=== PATIENT | female | born 1950 | race Caucasian/White ===

== ENCOUNTER → 2019-09-03 11:48 | Outpatient (CLI) | payer OTHER, SELFPAY ==
--- NOTE | 2019-09-03 | DI.RAD.S_ITS ---
PROCEDURE: XR FOOT LT MIN 3V INDICATIONS: Left Foot Pain TECHNIQUE: 3 views of the foot were acquired. COMPARISON: None. FINDINGS: Bones: No fractures or dislocations. No suspicious bony lesions. Mild first MTP joint degeneration. Diffuse interphalangeal spurring and sclerosis. Heterotopic ossification of the posterior calcaneus, suggesting chronic Achilles tendinopathy. Soft tissues: No tibiotalar joint effusion. Achilles tendon appears normal. IMPRESSION: No fracture Chronic degenerative changes as above Dictated by: Woo Montoya M.D. on 09/03/2019 at 13:15 Approved by: Woo Montoya M.D. on 09/03/2019 at 13:17
--- NOTE | 2019-09-03 | DI.RAD.S_ITS ---
PROCEDURE: XR ANKLE LT 2V INDICATIONS: Left Foot Pain TECHNIQUE: 3 views of the ankle were acquired. COMPARISON: None. FINDINGS: Bones: No fractures or dislocations. Ankle mortise is normally aligned. No suspicious bony lesions. Posterior calcaneal heterotopic ossification. Tibiotalar spurring Soft tissues: No tibiotalar joint effusion. Achilles tendon appears normal. IMPRESSION: Degenerative changes as above No fracture Dictated by: Woo Montoya M.D. on 09/03/2019 at 13:13 Approved by: Woo Montoya M.D. on 09/03/2019 at 13:15
[2019-09-03 12:15] LABS: Bacteria Urine None Seen; RBC Urine None Seen (0-5/HPF); WBC Urine None Seen (0-5/HPF)
[2019-09-03 12:47] LABS: Add Manual Diff / Slide Review NO; Basophils Absolute Auto 100 /uL (0-100); Eosinophils Absolute Auto 100 /uL (0-450); Eosinophils Percent Auto 2.1 % (2-4); Hematocrit 41.1 % (36-46); Hemoglobin 14.1 g/dL (12.0-16.0); Lymphocytes Absolute Auto 1800 /uL (1100-4500); Lymphocytes Percent Auto 28.8 % (25-40); Mean Corpuscular HGB Conc 34.3 % (30-36); Mean Corpuscular Hemoglobin 31.9 PG (26-34); Mean Corpuscular Volume 92.9 fL (80-100); Monocytes Absolute Auto 500 /uL (0-900); Monocytes Percent Auto 7.9 % (3-14); Neutrophils Absolute Auto 3700 /uL (1500-7000); Neutrophils Percent Auto 60.2 % (50-75); Platelet Count 217 X10^3/uL (150-400); Red Blood Cell Count 4.42 X10^6/uL (4.0-5.2); Red Cell Distribution Width 12.7 % (11.6-14.8); White Blood Cell Count 6.2 X10^3/uL (4.5-11.0)
[2019-09-03 13:19] LABS: Alanine Aminotransferase 21 IU/L (<35); Albumin 4.4 g/dL (3.5-5.0); Albumin Globulin Ratio 1.3 (1.0-2.8); Alkaline Phosphatase 72 U/L (38-126); Aspartate Aminotransferase 33 IU/L (14-36); BUN Creatinine Ratio 22.5 (6-22); Bilirubin Total 0.4 mg/dL (0.2-1.3); Blood Urea Nitrogen 16 mg/dL (7-17); Calcium 9.3 mg/dL (8.4-10.2); Carbon Dioxide 28 mmol/L (22-32); Chloride 105 mmol/L (98-107); Cholesterol 184 mg/dL (140-199); Estimated Glomerular Filt Rate > 60.0 mL/min (>60); Globulin 3.4 g/dL (1.7-4.1); Glucose 92 mg/dL (80-110); HDL Cholesterol 58 mg/dL (40-60); HEMOLYSIS < 15 (0-50); LDL Cholesterol Calculated 106 mg/dL (<100); Potassium 4.1 mmol/L (3.4-5.1); Sodium 140 mmol/L (137-145); Total Protein 7.8 g/dL (6.3-8.2); Triglycerides 99 mg/dL (35-150)
[2019-09-03 14:09] LABS: Vitamin B12 448 pg/mL (239-931)
[2019-09-03 15:01] LABS: Appearance Urine UA CLEAR; Bilirubin Urine UA NEGATIVE (NEGATIVE); Color Urine UA YELLOW; Glucose Urine UA NEGATIVE (Negative); Ketones Urine UA TRACE (NEGATIVE); Leukocyte Esterase Urine UA NEGATIVE (NEGATIVE); Nitrite Urine UA NEGATIVE (Negative); Occult Blood Urine UA NEGATIVE (Negative); Protein Urine UA NEGATIVE (Negative); Specific Gravity Urine UA 1.025 (1.000-1.035); Urobilinogen Urine UA 0.2 E.U./dL (0.2)
[2019-09-03 15:41] LABS: Culture Indicated Urine Cult Not Indicated; Mucus Urine 2+ (Negative); Squamous Epithelial Cell Urine 1-5 /HPF (0-5/HPF)
[2019-09-03 15:55] LABS: Vitamin D 25 Hydroxy (D3) 42.6 ng/mL (30.0-100.0)
== END ==
PROVIDERS: PCP Internal Medicine; Referring Provider Internal Medicine; Visit Provider Internal Medicine
DX: M79.672 Pain in left foot (principal); M19.072 Primary osteoarthritis, left ankle and foot; E03.9 Hypothyroidism, unspecified; E55.9 Vitamin D deficiency, unspecified
CPT/HCPCS: 36415; 73600; 73630; 80053; 80061; 81001; 82306; 82607; 84439; 84443; 85025

== ENCOUNTER → 2019-10-09 12:36 | Outpatient (CLI) | payer OTHER, SELFPAY | PROVIDERS: PCP Internal Medicine; Referring Provider Internal Medicine; Visit Provider Internal Medicine | DX: Z13.820 Encounter for screening for osteoporosis (principal); M81.0 Age-related osteoporosis without current pathological fracture; Z78.0 Asymptomatic menopausal state | CPT/HCPCS: 77080 ==

== ENCOUNTER → 2020-07-08 09:11 | Outpatient (CLI) | payer MEDICARE, SELFPAY ==
[2020-07-08] MEDS: COVID-19 VACC, Ad26(JANSSEN)/PF 0.5 ML IM (09:18)
== END ==
PROVIDERS: PCP Internal Medicine; Visit Provider Internal Medicine
DX: Z23 Encounter for immunization (principal)
CPT/HCPCS: 0031A; 91303

== ENCOUNTER → 2020-11-22 07:15 | Outpatient (CLI) | payer OTHER, SELFPAY ==
[2020-11-22 08:08] LABS: Add Manual Diff / Slide Review NO; Basophils Absolute Auto 100 /uL (0-100); Basophils Percent Auto 1.4 % (0-2); Eosinophils Absolute Auto 100 /uL (0-450); Eosinophils Percent Auto 2.1 % (2-4); Hematocrit 42.7 % (36-46); Hemoglobin 13.9 g/dL (12.0-16.0); Lymphocytes Absolute Auto 2200 /uL (1100-4500); Lymphocytes Percent Auto 39.1 % (25-40); Mean Corpuscular HGB Conc 32.5 % (30-36); Mean Corpuscular Hemoglobin 30.4 PG (26-34); Mean Corpuscular Volume 93.5 fL (80-100); Monocytes Absolute Auto 500 /uL (0-900); Monocytes Percent Auto 9.5 % (3-14); Neutrophils Absolute Auto 2700 /uL (1500-7000); Neutrophils Percent Auto 47.9 % (50-75); Platelet Count 216 X10^3/uL (150-400); Red Blood Cell Count 4.57 X10^6/uL (4.0-5.2); Red Cell Distribution Width 12.8 % (11.6-14.8); White Blood Cell Count 5.7 X10^3/uL (4.5-11.0)
[2020-11-22 08:29] LABS: Alanine Aminotransferase 30 IU/L (<35); Albumin 3.9 g/dL (3.5-5.0); Albumin Globulin Ratio 1.2 (1.0-2.8); Alkaline Phosphatase 71 U/L (38-126); Aspartate Aminotransferase 39 IU/L (14-36); BUN Creatinine Ratio 19.4 (6-22); Bilirubin Total 0.5 mg/dL (0.2-1.3); Blood Urea Nitrogen 14 mg/dL (7-17); Calcium 9.5 mg/dL (8.4-10.2); Carbon Dioxide 29 mmol/L (22-32); Chloride 107 mmol/L (98-107); Cholesterol 172 mg/dL (140-199); Estimated Glomerular Filt Rate > 60.0 mL/min (>60); Globulin 3.2 g/dL (1.7-4.1); Glucose 91 mg/dL (80-110); HDL Cholesterol 67 mg/dL (40-60); HEMOLYSIS < 15 (0-50); LDL Cholesterol Calculated 91 mg/dL (<100); Potassium 4.5 mmol/L (3.4-5.1); Sodium 141 mmol/L (137-145); Total Protein 7.1 g/dL (6.3-8.2); Triglycerides 70 mg/dL (35-150)
[2020-11-22 09:00] LABS: TSH w/ Reflex to FT4 0.03 uIU/mL (0.47-4.68)
[2020-11-22 10:36] LABS: Free T4, Direct Thyroxine 1.35 ng/dL (0.78-2.19)
== END ==
PROVIDERS: PCP Family Medicine; Referring Provider Family Medicine; Visit Provider Family Medicine
DX: E03.9 Hypothyroidism, unspecified (principal); E78.5 Hyperlipidemia, unspecified
CPT/HCPCS: 36415; 80053; 80061; 84439; 84443; 85025

== ENCOUNTER → 2021-01-12 07:04 | Outpatient (CLI) | payer OTHER, SELFPAY ==
[2021-01-12 09:18] LABS: Free T4, Direct Thyroxine 1.01 ng/dL (0.78-2.19)
[2021-01-12 09:32] LABS: TSH w/ Reflex to FT4 2.63 uIU/mL (0.47-4.68)
== END ==
PROVIDERS: PCP Family Medicine; Referring Provider Family Medicine; Visit Provider Family Medicine
DX: E03.9 Hypothyroidism, unspecified (principal)
CPT/HCPCS: 36415; 84439; 84443

== ENCOUNTER → 2021-01-17 08:20 | Outpatient (CLI) | payer OTHER, SELFPAY ==
[2021-01-17 12:42] LABS: COVID19 -Nasal RAPID Negative (Negative)
== END ==
PROVIDERS: PCP Family Medicine; Visit Provider Nurse Practitioner Family
DX: Z20.822 Contact with and (suspected) exposure to COVID-19 (principal); J02.9 Acute pharyngitis, unspecified; R05 Cough; R53.83 Other fatigue
CPT/HCPCS: 87635

== ENCOUNTER → 2021-08-25 13:36 | Outpatient (CLI) | payer OTHER, SELFPAY ==
[2021-08-25 14:22] LABS: Influenza A - CEPHEID Flu A NEGATIVE (NEGATIVE); Influenza B - CEPHEID Flu B NEGATIVE (NEGATIVE)
[2021-08-25 14:26] LABS: COVID-19 CEPHEID PCR (VTM/NP) Negative (Negative)
== END ==
PROVIDERS: PCP Family Medicine; Visit Provider Nurse Practitioner Family
DX: R05.9 Cough, unspecified (principal); Z20.822 Contact with and (suspected) exposure to COVID-19
CPT/HCPCS: 0240U

== ENCOUNTER → 2022-05-25 15:51 | Outpatient (CLI) | payer OTHER, MEDICARE, SELFPAY ==
[2022-05-25 16:38] LABS: Add Manual Diff / Slide Review NO; Basophils Absolute Auto 100 /uL (0-100); Eosinophils Absolute Auto 100 /uL (0-450); Eosinophils Percent Auto 0.8 % (2-4); Hematocrit 41.3 % (36-46); Hemoglobin 13.8 g/dL (12.0-16.0); Lymphocytes Absolute Auto 2100 /uL (1100-4500); Mean Corpuscular HGB Conc 33.3 % (30-36); Mean Corpuscular Hemoglobin 31.3 PG (26-34); Mean Corpuscular Volume 93.8 fL (80-100); Monocytes Absolute Auto 400 /uL (0-900); Monocytes Percent Auto 6.2 % (3-14); Neutrophils Absolute Auto 4000 /uL (1500-7000); Platelet Count 202 X10^3/uL (150-400); Red Cell Distribution Width 12.9 % (11.6-14.8); White Blood Cell Count 6.7 X10^3/uL (4.5-11.0)
[2022-05-25 16:59] LABS: Alanine Aminotransferase 26 IU/L (<35); Albumin 4.3 g/dL (3.5-5.0); Albumin Globulin Ratio 1.2 (1.0-2.8); Alkaline Phosphatase 83 U/L (38-126); Aspartate Aminotransferase 32 IU/L (14-36); BUN Creatinine Ratio 30.2 (6-22); Bilirubin Total 0.3 mg/dL (0.2-1.3); Blood Urea Nitrogen 19 mg/dL (7-17); Calcium 9.1 mg/dL (8.4-10.2); Carbon Dioxide 27 mmol/L (22-32); Chloride 103 mmol/L (98-107); Cholesterol 200 mg/dL (140-199); Estimated Glomerular Filt Rate > 60 mL/min (>60); Globulin 3.6 g/dL (1.7-4.1); Glucose 116 mg/dL (80-110); HDL Cholesterol 82 mg/dL (40-60); HEMOLYSIS < 15 (0-50); LDL Cholesterol Calculated 102 mg/dL (<100); Potassium 3.8 mmol/L (3.4-5.1); Sodium 139 mmol/L (137-145); Total Protein 7.9 g/dL (6.3-8.2); Triglycerides 81 mg/dL (35-150)
[2022-05-25 17:16] LABS: Free T4, Direct Thyroxine 1.13 ng/dL (0.78-2.19)
[2022-05-25 17:30] LABS: TSH w/ Reflex to FT4 5.08 uIU/mL (0.47-4.68)
== END ==
PROVIDERS: PCP Family Medicine; Referring Provider Family Medicine; Visit Provider Family Medicine
DX: E03.9 Hypothyroidism, unspecified (principal); E78.2 Mixed hyperlipidemia
CPT/HCPCS: 36415; 80053; 80061; 84439; 84443; 85025

== ENCOUNTER 2022-12-27 08:15 | Outpatient (RCR) | payer OTHER, MEDICARE, SELFPAY ==
--- NOTE | 2022-08-30 13:02 | PT.OIE ---
Current Diagnoses Pain in left shoulder (08/30/22) Strain of muscle(s) and tendon(s) of the rotator cuff of left shoulder, initial encounter (08/30/22) Past Medical History (Last Updated 08/26/20 @ 10:32 by Eugene Wagner MD) Hyperlipidemia Hypothyroidism Visit Care Team Role Provider Type Eugene Wagner MD Attending Provider Physician Family Provider Primary Care Provider Referring Provider Specialty: Family Practice Address: [address] [place] [address], [facility] Email: [email or web address] Physical Therapy Initial Evaluation PT-OP-A Visit Information Start: 08/29/22 15:17 Freq: Status: Active Protocol: Document 08/30/22 10:03 AMB (Rec: 08/30/22 10:53 AMB [id number]) Out-Patient Physical Therapy Visit Information Visit Information Visit Type Initial Evaluation Visit Start Time 10:00 Visit Stop Time 10:45 Total Visit Minutes 45 Visit Number 1 PT-OP-B Current Condition Start: 08/29/22 15:17 Freq: Status: Active Protocol: Document 08/30/22 10:03 AMB (Rec: 08/30/22 10:53 AMB [id number]) Current Condition History of Current Condition Onset Date January 2022 Current Complaints L shoulder pain History of Current Condition Pain after covid shot, likes to swim. Back in May pain increased. Has to use flippers for swimming now. Pain with movement especially overhead. Biking, piano, yoga all increase the pain. Treatment Goals Patient/Caregiver Goals Be able to swim, do yoga without shoulder pain Personal Factors Other Personal Factors That May Effect Hx B QUIQUE 2012, osteopenia, Therapy/Recovery hypothyroid, neck pain PT-OP-C Subjective Start: 08/29/22 15:17 Freq: Status: Active Protocol: Document 08/30/22 12:34 AMB (Rec: 08/30/22 12:36 AMB [id number]) OP-PT Subjective Patient Comments Patient Comments 4/10 pain in ant shoulder and scapula Patient Questionnaires Quick Dash- Upper Extremity Quick Dash UE Score 41 Quick Dash UE Impairment 40 to 59% Impaired (Score 40- 59) PT-OP-K Range of Motion Start: 08/29/22 15:17 Freq: Status: Active Protocol: Document 08/30/22 10:03 AMB (Rec: 08/30/22 10:53 AMB [id number]) Shoulder Goniometric Range of Motion Shoulder L Testing Position Sitting Flexion 145 Abduction 170 External Rotation at 90 degrees 32 Abduction Comments 75 R Shoulder ROM WFL Yes PT-OP-L Special Tests Start: 08/29/22 15:17 Freq: Status: Active Protocol: Document 08/30/22 10:03 AMB (Rec: 08/30/22 10:53 AMB [id number]) Special Tests Shoulder Special Tests Lift-Off Rotator Cuff Test Results + Neer Impingement Test Results - Amato Clay Impingement Test Results + PT-OP-M Strength Start: 08/29/22 15:17 Freq: Status: Active Protocol: Document 08/30/22 10:03 AMB (Rec: 08/30/22 10:53 AMB [id number]) Shoulder Strength Shoulder Manual Muscle Testing Left Flexion 4 Good Extension 4+ Good+ Abduction (C5) 4 Good External Rotation 3 Fair Internal Rotation 4- Good- PT-OP-Q Treatments Start: 08/29/22 15:17 Freq: Status: Active Protocol: Document 08/30/22 10:00 AMB (Rec: 08/30/22 12:24 AMB [id number]) Therapeutic Exercises Standing Exercises ER isometric Side left Reps/Minutes 5x5 t band rows Resistance green latex free Reps/Minutes 2x10 Other Exercises jey pose Reps/Minutes 30x2 Comments with side bend for more L stretch PT-OP-T Assessment and Plan Start: 08/29/22 15:17 Freq: Status: Active Protocol: Document 08/30/22 10:00 AMB (Rec: 08/30/22 13:02 AMB [id number]) Physical Therapy Assessment Rehab Potential Rehabilitation Potential Good Evaluation Complexity Number of Personal Factors/Comorbidities 1-2 Number of Body Systems Impaired 4 or More Clinical Presentation at Evaluation Stable Impairments Impairments Activity Tolerance,Functional Activities,Pain,ROM,Strength Goals Three Impairment Pain Short Term Goal (STG) Cait will swim without her flippers without increasing her shoulder pain. STG Duration 5 weeks Medical Technologist Prn Goal (LTG) Cait will perform her yoga without needing to modify for her shoulder pain. LTG Duration 10 weeks Two Impairment Strength Short Term Goal (STG) Cait will be independent with a HEP to improve her ROM and strengthening. STG Duration 5 weeks One Impairment ROM Short Term Goal (STG) Cait will improve her L shoulder active flexion to 160 degrees. STG Duration 5 Medical Technologist Prn Goal (LTG) Cait will improve her L shoulder external rotation to at least 50 degrees. LTG Duration 10 Assessment Summary Assessment Cait attends physical therapy with shoulder pain s/p vaccination in January that likely began an inflammatory reaction so now both her glenohumeral and scapulothoracic joints are stiff. She did show some signs of impingment and supraspinatus weakness as well . She will benefit from physical therapy to improve her ROM, strength and reduce her pain so that she can return to her active lifestyle with less shoulder pain. Physical Therapy Plan Frequency and Duration Frequency of Treatment 1x/Week Duration of treatment (weeks) 10 Plan of Care Start Date 08/30/22 Plan of Care End Date 11/08/22 Therapeutic Interventions Therapeutic Interventions Home Exercise Program,Joint Mobilizations,Manual Therapy, Neuromuscular Re-education, Self-Care/Home Management, Therapeutic Activities, Therapeutic Exercises Modalities Cold Pack/Ice Massage,Electric Stimulation,Hot Packs Next Visit Focus/Plan Next Note Type Treatment Note Next Visit Plan review HEP: t band rows, isometric ER,
--- NOTE | 2022-08-30 13:04 | PT.OPPOC ---
Physical, Occupational & Speech Therapy At [facility] Current Diagnoses Pain in left shoulder (08/30/22) Strain of muscle(s) and tendon(s) of the rotator cuff of left shoulder, initial encounter (08/30/22) Visit Care Team Role Provider Type Eugene Wagner MD Attending Provider Physician Family Provider Primary Care Provider Referring Provider Specialty: Family Practice Address: [address] [place] [address], [facility] Email: [email or web address] Plan Of Care PT-OP-T Assessment and Plan Start: 08/29/22 15:17 Freq: Status: Active Protocol: Document 08/30/22 10:00 AMB (Rec: 08/30/22 13:02 AMB [id number]) Physical Therapy Assessment Rehab Potential Rehabilitation Potential Good Evaluation Complexity Number of Personal Factors/Comorbidities 1-2 Number of Body Systems Impaired 4 or More Clinical Presentation at Evaluation Stable Impairments Impairments Activity Tolerance,Functional Activities,Pain,ROM,Strength Goals Three Impairment Pain Short Term Goal (STG) Cait will swim without her flippers without increasing her shoulder pain. STG Duration 5 weeks Spring Floor Service Worker Goal (LTG) Cait will perform her yoga without needing to modify for her shoulder pain. LTG Duration 10 weeks Two Impairment Strength Short Term Goal (STG) Cait will be independent with a HEP to improve her ROM and strengthening. STG Duration 5 weeks One Impairment ROM Short Term Goal (STG) Cait will improve her L shoulder active flexion to 160 degrees. STG Duration 5 Spring Floor Service Worker Goal (LTG) Cait will improve her L shoulder external rotation to at least 50 degrees. LTG Duration 10 Assessment Summary Assessment Cait attends physical therapy with shoulder pain s/p vaccination in January that likely began an inflammatory reaction so now both her glenohumeral and scapulothoracic joints are stiff. She did show some signs of impingment and supraspinatus weakness as well . She will benefit from physical therapy to improve her ROM, strength and reduce her pain so that she can return to her active lifestyle with less shoulder pain. Physical Therapy Plan Frequency and Duration Frequency of Treatment 1x/Week Duration of treatment (weeks) 10 Plan of Care Start Date 08/30/22 Plan of Care End Date 11/08/22 Therapeutic Interventions Therapeutic Interventions Home Exercise Program,Joint Mobilizations,Manual Therapy, Neuromuscular Re-education, Self-Care/Home Management, Therapeutic Activities, Therapeutic Exercises Modalities Cold Pack/Ice Massage,Electric Stimulation,Hot Packs Next Visit Focus/Plan Next Note Type Treatment Note Next Visit Plan review HEP: t band rows, isometric ER, Plan of Care Dates Plan of Care Start Date 08/30/22 Plan of Care End Date 11/08/22 Electronically Signed by: Liliaan Salgado, PT 08/30/22 0896 If you are in agreement with this Plan of Care, please return a signed and dated copy. I have reviewed this Plan of Care and certify that the skilled therapy services above are required to meet the patient?s needs. Physician Signature Date Printed Name and Credentials Clinical Instructor Signature Printed Name and Credentials
--- NOTE | 2022-09-05 16:23 | PT.OTN ---
Current Diagnoses Pain in left shoulder (09/05/22) Strain of muscle(s) and tendon(s) of the rotator cuff of left shoulder, initial encounter (09/05/22) Physical Therapy Treatment Note PT-OP-A Visit Information Start: 08/29/22 15:17 Freq: Status: Active Protocol: Document 09/05/22 13:34 AMB (Rec: 09/05/22 14:19 AMB [id number]) Out-Patient Physical Therapy Visit Information Visit Information Visit Type Treatment Note Visit Start Time 13:30 Visit Stop Time 14:15 Total Visit Minutes 45 Visit Number 2 PT-OP-B Current Condition Start: 08/29/22 15:17 Freq: Status: Active Protocol: Document 08/30/22 10:03 AMB (Rec: 08/30/22 10:53 AMB [id number]) Current Condition History of Current Condition Onset Date January 2022 Current Complaints L shoulder pain History of Current Condition Pain after covid shot, likes to swim. Back in May pain increased. Has to use flippers for swimming now. Pain with movement especially overhead. Biking, piano, yoga all increase the pain. Treatment Goals Patient/Caregiver Goals Be able to swim, do yoga without shoulder pain Personal Factors Other Personal Factors That May Effect Hx B QUIQUE 2012, osteopenia, Therapy/Recovery hypothyroid, neck pain PT-OP-C Subjective Start: 08/29/22 15:17 Freq: Status: Active Protocol: Document 09/05/22 16:20 AMB (Rec: 09/05/22 16:22 AMB [id number]) OP-PT Subjective Patient Comments Patient Comments Pt reports increased pain after last eval, back down to baseline now, has been icing. PT-OP-K Range of Motion Start: 08/29/22 15:17 Freq: Status: Active Protocol: Document 08/30/22 10:03 AMB (Rec: 08/30/22 10:53 AMB [id number]) Shoulder Goniometric Range of Motion Shoulder L Testing Position Sitting Flexion 145 Abduction 170 External Rotation at 90 degrees 32 Abduction Comments 75 R Shoulder ROM WFL Yes PT-OP-L Special Tests Start: 08/29/22 15:17 Freq: Status: Active Protocol: Document 08/30/22 10:03 AMB (Rec: 08/30/22 10:53 AMB [id number]) Special Tests Shoulder Special Tests Lift-Off Rotator Cuff Test Results + Neer Impingement Test Results - Amato Clay Impingement Test Results + PT-OP-M Strength Start: 08/29/22 15:17 Freq: Status: Active Protocol: Document 08/30/22 10:03 AMB (Rec: 08/30/22 10:53 AMB [id number]) Shoulder Strength Shoulder Manual Muscle Testing Left Flexion 4 Good Extension 4+ Good+ Abduction (C5) 4 Good External Rotation 3 Fair Internal Rotation 4- Good- PT-OP-Q Treatments Start: 08/29/22 15:17 Freq: Status: Active Protocol: Document 09/05/22 16:20 AMB (Rec: 09/05/22 16:22 AMB [id number]) Therapeutic Exercises Supine Exercises AAROM Supine Exercise Name dowel Reps/Minutes 10 cue hold 3 Comments flexion, scaption Sitting Exercises pulleys Reps/Minutes 10 Standing Exercises ER isometric Side left Reps/Minutes 5x5 t band rows Resistance green latex free Reps/Minutes 2x10 Manual Therapy Treatment Soft Tissue Mobilization scapula Body Location L lats, rhomboids, infraspinatus, upper traps, subscap Mobilization Type Myofascial Release,Trigger Point Release Intensity/Depth Moderate Body Position Supine Comments pin and stretch with PROM into flex, scaption, pec stretch PT-OP-T Assessment and Plan Start: 08/29/22 15:17 Freq: Status: Active Protocol: Document 09/05/22 13:34 AMB (Rec: 09/05/22 14:19 AMB [id number]) Physical Therapy Assessment Goals Three Impairment Pain Short Term Goal (STG) Cait will swim without her flippers without increasing her shoulder pain. STG Duration 5 weeks Cast Shell Grinder Goal (LTG) Cait will perform her yoga without needing to modify for her shoulder pain. LTG Duration 10 weeks Two Impairment Strength Short Term Goal (STG) Cait will be independent with a HEP to improve her ROM and strengthening. STG Duration 5 weeks One Impairment ROM Short Term Goal (STG) Cait will improve her L shoulder active flexion to 160 degrees. STG Duration 5 Cast Shell Grinder Goal (LTG) Cait will improve her L shoulder external rotation to at least 50 degrees. LTG Duration 10 Assessment Summary Assessment Cait returns with increased pain after last visit that lasted for about 24 hours. Had significant tightness thorughout scapula, will need to progress more stretching, starting out gentle due to increased pain after eval. Physical Therapy Plan Frequency and Duration Frequency of Treatment 1x/Week Duration of treatment (weeks) 10 Plan of Care Start Date 08/30/22 Plan of Care End Date 11/08/22 Therapeutic Interventions Therapeutic Interventions Home Exercise Program,Joint Mobilizations,Manual Therapy, Neuromuscular Re-education, Self-Care/Home Management, Therapeutic Activities, Therapeutic Exercises Modalities Cold Pack/Ice Massage,Electric Stimulation,Hot Packs Next Visit Focus/Plan Next Note Type Treatment Note Next Visit Plan review HEP: t band rows, isometric ER,
--- NOTE | 2022-09-12 13:18 | PT.OTN ---
Current Diagnoses Pain in left shoulder (09/12/22) Strain of muscle(s) and tendon(s) of the rotator cuff of left shoulder, initial encounter (09/12/22) Physical Therapy Treatment Note PT-OP-A Visit Information Start: 08/29/22 15:17 Freq: Status: Active Protocol: Document 09/12/22 07:32 AMB (Rec: 09/12/22 08:15 AMB [id number]) Out-Patient Physical Therapy Visit Information Visit Information Visit Type Treatment Note Visit Start Time 07:30 Visit Stop Time 08:15 Total Visit Minutes 45 Visit Number 3 PT-OP-B Current Condition Start: 08/29/22 15:17 Freq: Status: Active Protocol: Document 08/30/22 10:03 AMB (Rec: 08/30/22 10:53 AMB [id number]) Current Condition History of Current Condition Onset Date January 2022 Current Complaints L shoulder pain History of Current Condition Pain after covid shot, likes to swim. Back in May pain increased. Has to use flippers for swimming now. Pain with movement especially overhead. Biking, piano, yoga all increase the pain. Treatment Goals Patient/Caregiver Goals Be able to swim, do yoga without shoulder pain Personal Factors Other Personal Factors That May Effect Hx B QUIQUE 2012, osteopenia, Therapy/Recovery hypothyroid, neck pain PT-OP-C Subjective Start: 08/29/22 15:17 Freq: Status: Active Protocol: Document 09/12/22 07:32 AMB (Rec: 09/12/22 08:15 AMB [id number]) OP-PT Subjective Patient Comments Patient Comments Pt reports some increase in pain after last visit PT-OP-K Range of Motion Start: 08/29/22 15:17 Freq: Status: Active Protocol: Document 08/30/22 10:03 AMB (Rec: 08/30/22 10:53 AMB [id number]) Shoulder Goniometric Range of Motion Shoulder L Testing Position Sitting Flexion 145 Abduction 170 External Rotation at 90 degrees 32 Abduction Comments 75 R Shoulder ROM WFL Yes PT-OP-L Special Tests Start: 08/29/22 15:17 Freq: Status: Active Protocol: Document 08/30/22 10:03 AMB (Rec: 08/30/22 10:53 AMB [id number]) Special Tests Shoulder Special Tests Lift-Off Rotator Cuff Test Results + Neer Impingement Test Results - Amato Clay Impingement Test Results + PT-OP-M Strength Start: 08/29/22 15:17 Freq: Status: Active Protocol: Document 08/30/22 10:03 AMB (Rec: 08/30/22 10:53 AMB [id number]) Shoulder Strength Shoulder Manual Muscle Testing Left Flexion 4 Good Extension 4+ Good+ Abduction (C5) 4 Good External Rotation 3 Fair Internal Rotation 4- Good- PT-OP-Q Treatments Start: 08/29/22 15:17 Freq: Status: Active Protocol: Document 09/12/22 07:32 AMB (Rec: 09/12/22 08:15 AMB [id number]) Cardio Equipment Upper Body Ergometer (UBE) Duration (Minutes) 4 Other fwd/backward Therapeutic Exercises Supine Exercises scapular punch Supine Exercise Name AROM Side left Reps/Minutes 10 AAROM Supine Exercise Name changed to AROM stretch overhead in supine Reps/Minutes 10 cue hold 3 Comments flexion, scaption Sidelying Exercises open book Side left Reps/Minutes 15 Sitting Exercises shoulder flexion stretch Reps/Minutes 30x2 Standing Exercises ER isometric Side left Reps/Minutes 5x5 t band rows Resistance green latex free Reps/Minutes 2x10 Manual Therapy Treatment Soft Tissue Mobilization scapula Body Location L lats, rhomboids, infraspinatus, upper traps, subscap Mobilization Type Myofascial Release,Trigger Point Release Intensity/Depth Moderate Body Position Supine Comments pin and stretch with PROM into flex, scaption, pec stretch PT-OP-T Assessment and Plan Start: 08/29/22 15:17 Freq: Status: Active Protocol: Document 09/12/22 07:32 AMB (Rec: 09/12/22 08:15 AMB [id number]) Physical Therapy Assessment Goals Three Impairment Pain Short Term Goal (STG) Cait will swim without her flippers without increasing her shoulder pain. STG Duration 5 weeks Liquid Loader Goal (LTG) Cait will perform her yoga without needing to modify for her shoulder pain. LTG Duration 10 weeks Two Impairment Strength Short Term Goal (STG) Cait will be independent with a HEP to improve her ROM and strengthening. STG Duration 5 weeks One Impairment ROM Short Term Goal (STG) Cait will improve her L shoulder active flexion to 160 degrees. STG Duration 5 Alf Goal (LTG) Cait will improve her L shoulder external rotation to at least 50 degrees. LTG Duration 10 Assessment Summary Assessment Cait is getting a good stretch from therapy, will need to reassess how she tolerated afterwards, as she tends to be sore afterwards. d/soham langston exercise, pt to do open book and forward stretch (can stand or sit with arms outstretched on table) depending on what is more convenient. Physical Therapy Plan Frequency and Duration Frequency of Treatment 1x/Week Duration of treatment (weeks) 10 Plan of Care Start Date 08/30/22 Plan of Care End Date 11/08/22 Therapeutic Interventions Therapeutic Interventions Home Exercise Program,Joint Mobilizations,Manual Therapy, Neuromuscular Re-education, Self-Care/Home Management, Therapeutic Activities, Therapeutic Exercises Modalities Cold Pack/Ice Massage,Electric Stimulation,Hot Packs Next Visit Focus/Plan Next Note Type Treatment Note Next Visit Plan review HEP: t band rows, isometric ER, ivis COREY
--- NOTE | 2022-09-20 10:40 | PT.OTN ---
Current Diagnoses Pain in left shoulder (09/20/22) Strain of muscle(s) and tendon(s) of the rotator cuff of left shoulder, initial encounter (09/20/22) Physical Therapy Treatment Note PT-OP-A Visit Information Start: 08/29/22 15:17 Freq: Status: Active Protocol: Document 09/20/22 09:27 SW (Rec: 09/20/22 10:38 SW [id number]) Out-Patient Physical Therapy Visit Information Visit Information Visit Type Treatment Note Visit Start Time 09:30 Visit Stop Time 10:15 Total Visit Minutes 45 Visit Number 4 Number of TICKET COLLECTOR Visits 1 PT-OP-B Current Condition Start: 08/29/22 15:17 Freq: Status: Active Protocol: Document 08/30/22 10:03 AMB (Rec: 08/30/22 10:53 AMB [id number]) Current Condition History of Current Condition Onset Date January 2022 Current Complaints L shoulder pain History of Current Condition Pain after covid shot, likes to swim. Back in May pain increased. Has to use flippers for swimming now. Pain with movement especially overhead. Biking, piano, yoga all increase the pain. Treatment Goals Patient/Caregiver Goals Be able to swim, do yoga without shoulder pain Personal Factors Other Personal Factors That May Effect Hx B QUIQUE 2012, osteopenia, Therapy/Recovery hypothyroid, neck pain PT-OP-C Subjective Start: 08/29/22 15:17 Freq: Status: Active Protocol: Document 09/20/22 09:27 SW (Rec: 09/20/22 10:38 SW [id number]) OP-PT Subjective Patient Comments Patient Comments Pt reports no increase in pain post last session. She was busy, fit in the exercises as she could. Reports her symptoms have not worsened, may be a little better. PT-OP-K Range of Motion Start: 08/29/22 15:17 Freq: Status: Active Protocol: Document 08/30/22 10:03 AMB (Rec: 08/30/22 10:53 AMB [id number]) Shoulder Goniometric Range of Motion Shoulder L Testing Position Sitting Flexion 145 Abduction 170 External Rotation at 90 degrees 32 Abduction Comments 75 R Shoulder ROM WFL Yes PT-OP-L Special Tests Start: 08/29/22 15:17 Freq: Status: Active Protocol: Document 08/30/22 10:03 AMB (Rec: 08/30/22 10:53 AMB [id number]) Special Tests Shoulder Special Tests Lift-Off Rotator Cuff Test Results + Neer Impingement Test Results - [place] Impingement Test Results + PT-OP-M Strength Start: 08/29/22 15:17 Freq: Status: Active Protocol: Document 08/30/22 10:03 AMB (Rec: 08/30/22 10:53 AMB [id number]) Shoulder Strength Shoulder Manual Muscle Testing Left Flexion 4 Good Extension 4+ Good+ Abduction (C5) 4 Good External Rotation 3 Fair Internal Rotation 4- Good- PT-OP-Q Treatments Start: 08/29/22 15:17 Freq: Status: Active Protocol: Document 09/20/22 09:27 SW (Rec: 09/20/22 10:38 SW [id number]) Cardio Equipment Upper Body Ergometer (UBE) Duration (Minutes) 4 RPM 25 Seat Position 12 Other fwd/backward Therapeutic Exercises Supine Exercises AROM Supine Exercise Name Stretch Comments Flexion, Scaption, ER scapular punch Supine Exercise Name AROM Side left Reps/Minutes 10 Sidelying Exercises open book Side left Reps/Minutes 15 Sitting Exercises shoulder flexion stretch Reps/Minutes 30x2 Standing Exercises ER isometric Side left Reps/Minutes 5x10 t band rows Resistance green latex free Reps/Minutes 2x10 Manual Therapy Treatment Soft Tissue Mobilization scapula Body Location L lats, rhomboids, infraspinatus, upper traps, subscap Mobilization Type Myofascial Release,Trigger Point Release Intensity/Depth Moderate Body Position Supine Comments pin and stretch with PROM into flex, scaption, pec stretch Self-Care/Home Management Treatment Education Patient Education Body Mechanics,Home Exercise Program Other Education HEP progressions/regressions, apropriate amount of muscle fatigue PT-OP-T Assessment and Plan Start: 08/29/22 15:17 Freq: Status: Active Protocol: Document 09/20/22 09:27 SW (Rec: 09/20/22 10:38 SW [id number]) Physical Therapy Assessment Goals Three Impairment Pain Short Term Goal (STG) Cait will swim without her flippers without increasing her shoulder pain. STG Duration 5 weeks Nursing Home Goal (LTG) Cait will perform her yoga without needing to modify for her shoulder pain. LTG Duration 10 weeks Two Impairment Strength Short Term Goal (STG) Cait will be independent with a HEP to improve her ROM and strengthening. STG Duration 5 weeks One Impairment ROM Short Term Goal (STG) Cait will improve her L shoulder active flexion to 160 degrees. STG Duration 5 Eyelet Operator Goal (LTG) Cait will improve her L shoulder external rotation to at least 50 degrees. LTG Duration 10 Assessment Summary Assessment Pt tolerated last session well . Continued strengthening today, increased repetitions. Reviewed HEP, educated patient on progressions and appropriate amount of muscle fatigue.
--- NOTE | 2022-09-27 11:12 | PT.OTN ---
Current Diagnoses Pain in left shoulder (09/27/22) Strain of muscle(s) and tendon(s) of the rotator cuff of left shoulder, initial encounter (09/27/22) Physical Therapy Treatment Note PT-OP-A Visit Information Start: 08/29/22 15:17 Freq: Status: Active Protocol: Document 09/27/22 09:28 SW (Rec: 09/27/22 11:12 SW [id number]) Out-Patient Physical Therapy Visit Information Visit Information Visit Type Treatment Note Visit Start Time 09:30 Visit Stop Time 10:15 Total Visit Minutes 45 Visit Number 5 Number of FINISH MACHINE TENDER Visits 1 PT-OP-B Current Condition Start: 08/29/22 15:17 Freq: Status: Active Protocol: Document 08/30/22 10:03 AMB (Rec: 08/30/22 10:53 AMB [id number]) Current Condition History of Current Condition Onset Date January 2022 Current Complaints L shoulder pain History of Current Condition Pain after covid shot, likes to swim. Back in May pain increased. Has to use flippers for swimming now. Pain with movement especially overhead. Biking, piano, yoga all increase the pain. Treatment Goals Patient/Caregiver Goals Be able to swim, do yoga without shoulder pain Personal Factors Other Personal Factors That May Effect Hx B QUIQUE 2012, osteopenia, Therapy/Recovery hypothyroid, neck pain PT-OP-C Subjective Start: 08/29/22 15:17 Freq: Status: Active Protocol: Document 09/27/22 09:28 SW (Rec: 09/27/22 11:12 SW [id number]) OP-PT Subjective Patient Comments Patient Comments Pt reports sore after last session, icing helped, relieved the next day. She has noticed her range has improved with open book stretch and carry through with ADLs PT-OP-K Range of Motion Start: 08/29/22 15:17 Freq: Status: Active Protocol: Document 08/30/22 10:03 AMB (Rec: 08/30/22 10:53 AMB [id number]) Shoulder Goniometric Range of Motion Shoulder L Testing Position Sitting Flexion 145 Abduction 170 External Rotation at 90 degrees 32 Abduction Comments 75 R Shoulder ROM WFL Yes PT-OP-L Special Tests Start: 08/29/22 15:17 Freq: Status: Active Protocol: Document 08/30/22 10:03 AMB (Rec: 08/30/22 10:53 AMB [id number]) Special Tests Shoulder Special Tests Lift-Off Rotator Cuff Test Results + Neer Impingement Test Results - [place] Impingement Test Results + PT-OP-M Strength Start: 08/29/22 15:17 Freq: Status: Active Protocol: Document 08/30/22 10:03 AMB (Rec: 08/30/22 10:53 AMB [id number]) Shoulder Strength Shoulder Manual Muscle Testing Left Flexion 4 Good Extension 4+ Good+ Abduction (C5) 4 Good External Rotation 3 Fair Internal Rotation 4- Good- PT-OP-Q Treatments Start: 08/29/22 15:17 Freq: Status: Active Protocol: Document 09/27/22 09:28 SW (Rec: 09/27/22 11:12 SW [id number]) Cardio Equipment Upper Body Ergometer (UBE) Duration (Minutes) 4 RPM 25 Seat Position 12 Other fwd/backward Therapeutic Exercises Supine Exercises AROM Supine Exercise Name Stretch Scaption, flexion Comments Cued posture and shldr ER to eliminate impingement symptoms scapular punch Side left Resistance Yellow Rodolfo Reps/Minutes 10 Comments cue for cervical spine AAROM Supine Exercise Name Dowel AAROM Equipment Used Dowel Reps/Minutes 10 cue hold 3 Comments flexion, scaption Sitting Exercises shoulder Scaption Sitting Exercise Name Shoulder Scaption Stretch/ROM Side left Resistance Antigravity position Reps/Minutes 10 x 3 hold shoulder flexion stretch Reps/Minutes 30x2 Standing Exercises Corner Stretch Standing Exercise Name Pec stretch in corner Equipment Used @ lockers Reps/Minutes x 30 ER Standing Exercise Name Shldr ER Side left Resistance Green TB Reps/Minutes x5 Comments vc for execution without compensation t band rows Resistance green TB Reps/Minutes x10 Manual Therapy Treatment Soft Tissue Mobilization scapula Body Location L lats, rhomboids, infraspinatus, upper traps, subscap Mobilization Type Myofascial Release,Trigger Point Release Intensity/Depth Moderate Body Position Supine Comments pin and stretch with PROM into flex, scaption, pec stretch Joint Mobilizations Inferior/Posterior Joint L Shoulder Direction inferior/posterior Grade II Body Position Supine Reps/Duration 2 x 30 Manual Techniques [place] distraction Body Location Left shoulder Body Position Supine Reps/Duration 3 x 30 Comments good feedback Self-Care/Home Management Treatment Education Patient Education Body Mechanics,Home Exercise Program,Joint Protection Other Education Educated patient on mm loading , time and consistancy to builing mm and shoulder mechanics. Educated patient on HEP exercises. HO declined, pt wrote exercises and correct execution on prior HEP HO. Educated patient on stretch vs pain limits and positions of comfort with stretching exercises. PT-OP-T Assessment and Plan Start: 08/29/22 15:17 Freq: Status: Active Protocol: Document 09/27/22 09:28 SW (Rec: 09/27/22 11:12 [id number]) Physical Therapy Assessment Goals Three Impairment Pain Short Term Goal (STG) Cait will swim without her flippers without increasing her shoulder pain. STG Duration 5 weeks Group Home Goal (LTG) Cait will perform her yoga without needing to modify for her shoulder pain. LTG Duration 10 weeks Two Impairment Strength Short Term Goal (STG) Cait will be independent with a HEP to improve her ROM and strengthening. STG Duration 5 weeks One Impairment ROM Short Term Goal (STG) Cait will improve her L shoulder active flexion to 160 degrees. STG Duration 5 Group Home Goal (LTG) Cait will improve her L shoulder external rotation to at least 50 degrees. LTG Duration 10 Assessment Summary Assessment Pt reports she has noticed the gains she has made with stretches through increased ROM with ADLs throughout the day. Continued stretching exercises. Progressed to concentric shldr ER strengthening today, good feedback with no increased symptoms. Attempted Dowel ROM exercises, good response this session with forward flexion w / cues to activate serratus. Physical Therapy Plan Frequency and Duration Frequency of Treatment 1x/Week Duration of treatment (weeks) 10 Plan of Care Start Date 08/30/22 Plan of Care End Date 11/08/22 Therapeutic Interventions Therapeutic Interventions Home Exercise Program,Joint Mobilizations,Manual Therapy, Neuromuscular Re-education, Self-Care/Home Management, Therapeutic Activities, Therapeutic Exercises Modalities Cold Pack/Ice Massage,Electric Stimulation,Hot Packs Next Visit Focus/Plan Next Note Type Treatment Note Next Visit Plan review HEP: t band rows, ER strength, dowel AAROM Consider Goni L shoulder ER/ Flex for progress toward goal.
--- NOTE | 2022-10-05 14:34 | PT.OTN ---
Current Diagnoses Pain in left shoulder (10/05/22) Strain of muscle(s) and tendon(s) of the rotator cuff of left shoulder, initial encounter (10/05/22) Physical Therapy Treatment Note PT-OP-A Visit Information Start: 08/29/22 15:17 Freq: Status: Active Protocol: Document 10/05/22 12:48 ES (Rec: 10/05/22 14:33 ES [id number]) Out-Patient Physical Therapy Visit Information Visit Information Visit Type Progress Note Visit Start Time 13:00 Visit Stop Time 14:04 Total Visit Minutes 64 Visit Number 6 Evaluation Information Evaluation Date 08/30/22 PT-OP-B Current Condition Start: 08/29/22 15:17 Freq: Status: Active Protocol: Document 08/30/22 10:03 AMB (Rec: 08/30/22 10:53 AMB [id number]) Current Condition History of Current Condition Onset Date January 2022 Current Complaints L shoulder pain History of Current Condition Pain after covid shot, likes to swim. Back in May pain increased. Has to use flippers for swimming now. Pain with movement especially overhead. Biking, piano, yoga all increase the pain. Treatment Goals Patient/Caregiver Goals Be able to swim, do yoga without shoulder pain Personal Factors Other Personal Factors That May Effect Hx B QUIQUE 2012, osteopenia, Therapy/Recovery hypothyroid, neck pain PT-OP-C Subjective Start: 08/29/22 15:17 Freq: Status: Active Protocol: Document 10/05/22 12:48 ES (Rec: 10/05/22 14:33 ES [id number]) OP-PT Subjective Patient Comments Patient Comments Patient reports that she overdid her exercises from last visit and her shoulder has been more sore. The exercise where she raises her arms up and down seem to be aggravating her shoulder. Overall she states she feels like she is improving. Still having pain with reaching forward and out to the side due to pinching, better when thinking about how she's doing it. Is still swimming a mile, using flippers about 50% of the time. Has not had to modify her yoga poses but still has some discomfort in her shoulder doing them. Patient Reported Progress Improving Patient Questionnaires Quick Dash- Upper Extremity Quick Dash UE Score 27 Quick Dash UE Impairment 20 to 39% Impaired (Score 20- 39) PT-OP-K Range of Motion Start: 08/29/22 15:17 Freq: Status: Active Protocol: Document 10/05/22 12:48 ES (Rec: 10/05/22 14:33 ES [id number]) Shoulder Goniometric Range of Motion Shoulder L Flexion 145 Abduction 155 Horizontal Adduction 20 External Rotation at 90 degrees 65 Abduction External Rotation at 0 degrees Abduction 30 Comments Pain at mid range shoulder abduction>flexion and with horiz adduction R Flexion 145 Abduction 155 Horizontal Adduction 35 PT-OP-L Special Tests Start: 08/29/22 15:17 Freq: Status: Active Protocol: Document 08/30/22 10:03 AMB (Rec: 08/30/22 10:53 AMB [id number]) Special Tests Shoulder Special Tests Lift-Off Rotator Cuff Test Results + Neer Impingement Test Results - [place] Impingement Test Results + PT-OP-M Strength Start: 08/29/22 15:17 Freq: Status: Active Protocol: Document 10/05/22 12:48 ES (Rec: 10/05/22 14:33 ES [id number]) Shoulder Strength Shoulder Manual Muscle Testing Left Flexion 4+ Good+ Abduction (C5) 4+ Good+ External Rotation 4 Good Internal Rotation 4 Good Comments Pain with resisted abduction, IR>ER PT-OP-Q Treatments Start: 08/29/22 15:17 Freq: Status: Active Protocol: Document 10/05/22 12:48 ES (Rec: 10/05/22 14:33 ES [id number]) Cardio Equipment Upper Body Ergometer (UBE) Duration (Minutes) 4 RPM 25 Seat Position 12 Other fwd/backward Therapeutic Exercises Standing Exercises Post capsule stretch Side left Equipment Used L5 band for posterior glide Reps/Minutes 3x30s Comments Instructed for home Manual Therapy Treatment Soft Tissue Mobilization scapula Body Location L scapulohumeral mm's (teres, subscap, infra) Mobilization Type Myofascial Release,Trigger Point Release Intensity/Depth Moderate Body Position Supine, sidelying Joint Mobilizations Inferior/Posterior Joint L Shoulder Direction Posterior, inferior Grade III Body Position Supine Reps/Duration 4x30s Comments At 90 degrees abduction Manual Techniques Posterior capsule stretch Body Position Supine Reps/Duration 3x30s Comments Performed with manual stabilization of scapula, manual posterior/lateral glide , joint distraction Self-Care/Home Management Treatment Education Patient Education Home Exercise Program Other Education Education to resume ex's with decreased reps, monitoring for pain. Okay to ride bike being mindful of upright posture, keeping elbows closer to body vs out to side. PT-OP-T Assessment and Plan Start: 08/29/22 15:17 Freq: Status: Active Protocol: Document 10/05/22 12:48 ES (Rec: 10/05/22 14:33 ES [id number]) Physical Therapy Assessment Goals Three Impairment Pain Short Term Goal (STG) Cait will swim without her flippers without increasing her shoulder pain. STG Duration 5 weeks Clinical Courier Goal (LTG) Cait will perform her yoga without needing to modify for her shoulder pain. (Met ) LTG Duration 10 weeks Two Impairment Strength Short Term Goal (STG) Cait will be independent with a HEP to improve her ROM and strengthening. STG Duration 5 weeks One Impairment ROM Short Term Goal (STG) Cait will improve her L shoulder active flexion to 160 degrees. (D/c goal 10/05/22; flexion ROM equal R vs L at 145 degrees) STG Duration 5 Mcfp Goal (LTG) Cait will improve her L shoulder external rotation to at least 50 degrees. LTG Duration 10 Progress Towards Goals Progress Towards Goals Progressing Toward Goals Progress Comments Swimming with flippers 50% of the time. Able to do yoga without modification. Progressing with HEP. No change in shoulder flexion. Improved ER ROM at 90 degrees, no change at 0 degrees abduction. Assessment Summary Assessment Patient demonstrates improved shoulder ER ROM and global shoulder strength with decreased pain. She had improved QuickDASH score indicating improved function. She continues to have pain with mid range abduction> flexion, and had decreased posterior capsule length L indicated by decreased horizontal adduction ROM and decreased posterior and inferior glide with manual assessment. She also continues to have tightness and tenderness in scapulohumeral mm's. She had decreased pain with flexion and abduction AROM following manual therapy. She will benefit from further skilled therapy to improve GHJ mechanics, increase ROM, and improve RC and scapular strength and control to improve her ability to participate in her normal daily activities. Physical Therapy Plan Frequency and Duration Frequency of Treatment 1x/Week Duration of treatment (weeks) 10 Plan of Care Start Date 08/30/22 Plan of Care End Date 11/08/22 Next Visit Focus/Plan Next Note Type Treatment Note Next Visit Plan Assess response to manual therapy and new posterior capsule stretch. Continue with GHJ glides & STM to improve capsule length and GHJ mobility. Try IR strengthening .
--- NOTE | 2022-10-19 14:39 | PT.OTN ---
Current Diagnoses Pain in left shoulder (10/18/22) Strain of muscle(s) and tendon(s) of the rotator cuff of left shoulder, initial encounter (10/18/22) Physical Therapy Treatment Note PT-OP-A Visit Information Start: 08/29/22 15:17 Freq: Status: Active Protocol: Document 10/18/22 14:40 AMB (Rec: 10/18/22 14:51 AMB [id number]) Out-Patient Physical Therapy Visit Information Visit Information Visit Type Treatment Note Visit Start Time 14:30 Visit Stop Time 15:15 Total Visit Minutes 45 Visit Number 7 PT-OP-B Current Condition Start: 08/29/22 15:17 Freq: Status: Active Protocol: Document 08/30/22 10:03 AMB (Rec: 08/30/22 10:53 AMB [id number]) Current Condition History of Current Condition Onset Date January 2022 Current Complaints L shoulder pain History of Current Condition Pain after covid shot, likes to swim. Back in May pain increased. Has to use flippers for swimming now. Pain with movement especially overhead. Biking, piano, yoga all increase the pain. Treatment Goals Patient/Caregiver Goals Be able to swim, do yoga without shoulder pain Personal Factors Other Personal Factors That May Effect Hx B QUIQUE 2012, osteopenia, Therapy/Recovery hypothyroid, neck pain PT-OP-C Subjective Start: 08/29/22 15:17 Freq: Status: Active Protocol: Document 10/18/22 14:26 AMB (Rec: 10/19/22 14:37 AMB [id number]) OP-PT Subjective Patient Comments Patient Comments Cait reports she has overdone in the last two visits. She feels like her shoulder is worse now. She has stopped doing her pec stretch and her ER isometric, and hadn't even tried her posterior capsule stretch due to the increased pain. She feels she needs a slower progression to her PT. PT-OP-K Range of Motion Start: 08/29/22 15:17 Freq: Status: Active Protocol: Document 10/05/22 12:48 ES (Rec: 10/05/22 14:33 ES [id number]) Shoulder Goniometric Range of Motion Shoulder L Flexion 145 Abduction 155 Horizontal Adduction 20 External Rotation at 90 degrees 65 Abduction External Rotation at 0 degrees Abduction 30 Comments Pain at mid range shoulder abduction>flexion and with horiz adduction R Flexion 145 Abduction 155 Horizontal Adduction 35 PT-OP-L Special Tests Start: 08/29/22 15:17 Freq: Status: Active Protocol: Document 08/30/22 10:03 AMB (Rec: 08/30/22 10:53 AMB [id number]) Special Tests Shoulder Special Tests Lift-Off Rotator Cuff Test Results + Neer Impingement Test Results - [place] Impingement Test Results + PT-OP-M Strength Start: 08/29/22 15:17 Freq: Status: Active Protocol: Document 10/05/22 12:48 ES (Rec: 10/05/22 14:33 ES [id number]) Shoulder Strength Shoulder Manual Muscle Testing Left Flexion 4+ Good+ Abduction (C5) 4+ Good+ External Rotation 4 Good Internal Rotation 4 Good Comments Pain with resisted abduction, IR>ER PT-OP-Q Treatments Start: 08/29/22 15:17 Freq: Status: Active Protocol: Document 10/18/22 14:26 AMB (Rec: 10/19/22 14:37 AMB [id number]) Therapeutic Exercises Supine Exercises AROM Supine Exercise Name Stretch Scaption, flexion Comments held for now due to discomfort AAROM Supine Exercise Name Dowel AAROM Equipment Used Dowel Reps/Minutes 10 cue hold 3 Comments flexion, scaption Sidelying Exercises open book Side left Reps/Minutes 15 Standing Exercises Corner Stretch Standing Exercise Name Pec stretch in corner Equipment Used modified to doorway Reps/Minutes x 30 Comments at 90 d abduction ER isometric Side left Reps/Minutes 5x5 Manual Therapy Treatment Soft Tissue Mobilization scapula Body Location L scapulohumeral mm's (teres, subscap, infra) Mobilization Type Myofascial Release,Trigger Point Release Intensity/Depth Moderate Body Position Supine, sidelying Joint Mobilizations Inferior/Posterior Joint L Shoulder Direction Posterior, inferior Grade III Body Position Supine Reps/Duration 4x30s Comments At 90 degrees abduction PT-OP-T Assessment and Plan Start: 08/29/22 15:17 Freq: Status: Active Protocol: Document 10/18/22 14:40 AMB (Rec: 10/18/22 14:51 AMB [id number]) Physical Therapy Assessment Goals Three Impairment Pain Short Term Goal (STG) Cait will swim without her flippers without increasing her shoulder pain. STG Duration 5 weeks Custodial Goal (LTG) Cait will perform her yoga without needing to modify for her shoulder pain. (Met ) LTG Duration 10 weeks Two Impairment Strength Short Term Goal (STG) Cait will be independent with a HEP to improve her ROM and strengthening. STG Duration 5 weeks One Impairment ROM Short Term Goal (STG) Cait will improve her L shoulder active flexion to 160 degrees. (D/c goal 10/05/22; flexion ROM equal R vs L at 145 degrees) STG Duration 5 Parachute Cushion Installer Goal (LTG) Cait will improve her L shoulder external rotation to at least 50 degrees. LTG Duration 10 Assessment Summary Assessment Pt reports increased pain after last visit. Pain with shoulder abduction, so d/soham that exercise, decreased frequency per pt request to allow for more time for recovery between sessions. Physical Therapy Plan Frequency and Duration Frequency of Treatment 1x/Week Duration of treatment (weeks) 10 Plan of Care Start Date 08/30/22 Plan of Care End Date 11/08/22 Therapeutic Interventions Therapeutic Interventions Home Exercise Program,Joint Mobilizations,Manual Therapy, Neuromuscular Re-education, Self-Care/Home Management, Therapeutic Activities, Therapeutic Exercises Modalities Cold Pack/Ice Massage,Electric Stimulation,Hot Packs
--- NOTE | 2022-10-25 09:56 | PT.OTN ---
Current Diagnoses Pain in left shoulder (10/25/22) Strain of muscle(s) and tendon(s) of the rotator cuff of left shoulder, initial encounter (10/25/22) Physical Therapy Treatment Note PT-OP-A Visit Information Start: 08/29/22 15:17 Freq: Status: Active Protocol: Document 10/25/22 07:27 AMB (Rec: 10/25/22 08:15 AMB [id number]) Out-Patient Physical Therapy Visit Information Visit Information Visit Type Treatment Note Visit Start Time 07:30 Visit Stop Time 08:15 Total Visit Minutes 45 Visit Number 8 PT-OP-B Current Condition Start: 08/29/22 15:17 Freq: Status: Active Protocol: Document 08/30/22 10:03 AMB (Rec: 08/30/22 10:53 AMB [id number]) Current Condition History of Current Condition Onset Date January 2022 Current Complaints L shoulder pain History of Current Condition Pain after covid shot, likes to swim. Back in May pain increased. Has to use flippers for swimming now. Pain with movement especially overhead. Biking, piano, yoga all increase the pain. Treatment Goals Patient/Caregiver Goals Be able to swim, do yoga without shoulder pain Personal Factors Other Personal Factors That May Effect Hx B QUIQUE 2012, osteopenia, Therapy/Recovery hypothyroid, neck pain PT-OP-C Subjective Start: 08/29/22 15:17 Freq: Status: Active Protocol: Document 10/25/22 07:27 AMB (Rec: 10/25/22 08:15 AMB [id number]) OP-PT Subjective Patient Comments Patient Comments Had a good week, but then yesterday did exercises in the evening and then felt the pain after that. PT-OP-K Range of Motion Start: 08/29/22 15:17 Freq: Status: Active Protocol: Document 10/05/22 12:48 ES (Rec: 10/05/22 14:33 ES [id number]) Shoulder Goniometric Range of Motion Shoulder L Flexion 145 Abduction 155 Horizontal Adduction 20 External Rotation at 90 degrees 65 Abduction External Rotation at 0 degrees Abduction 30 Comments Pain at mid range shoulder abduction>flexion and with horiz adduction R Flexion 145 Abduction 155 Horizontal Adduction 35 PT-OP-L Special Tests Start: 08/29/22 15:17 Freq: Status: Active Protocol: Document 08/30/22 10:03 AMB (Rec: 08/30/22 10:53 AMB [id number]) Special Tests Shoulder Special Tests Lift-Off Rotator Cuff Test Results + Neer Impingement Test Results - [place] Impingement Test Results + PT-OP-M Strength Start: 08/29/22 15:17 Freq: Status: Active Protocol: Document 10/05/22 12:48 ES (Rec: 10/05/22 14:33 ES [id number]) Shoulder Strength Shoulder Manual Muscle Testing Left Flexion 4+ Good+ Abduction (C5) 4+ Good+ External Rotation 4 Good Internal Rotation 4 Good Comments Pain with resisted abduction, IR>ER PT-OP-Q Treatments Start: 08/29/22 15:17 Freq: Status: Active Protocol: Document 10/25/22 07:30 AMB (Rec: 10/25/22 09:55 AMB [id number]) Therapeutic Exercises Supine Exercises scapular punch Side left Resistance Yellow Rodolfo Reps/Minutes 10 Comments cue slow descent Sidelying Exercises open book Side left Reps/Minutes 15 Comments cue gentle slow Standing Exercises Corner Stretch Standing Exercise Name Pec stretch in corner Equipment Used modified to doorway Reps/Minutes x 30 Comments at 90 d abduction ER isometric Side left Reps/Minutes 5x5 t band rows Resistance green TB Reps/Minutes x10 Manual Therapy Treatment Soft Tissue Mobilization scapula Body Location L scapulohumeral mm's (teres, subscap, infra) Mobilization Type Myofascial Release,Trigger Point Release Intensity/Depth Moderate Body Position Supine, sidelying Joint Mobilizations Inferior/Posterior Joint L Shoulder Direction Posterior, inferior Grade III Body Position Supine Reps/Duration 4x30s Comments At 90 degrees abduction Manual Techniques [place] distraction Body Location Left shoulder Body Position Supine Reps/Duration 3 x 30 Comments into abduction and flexion pt providing feedback as to what she can tolerate PT-OP-T Assessment and Plan Start: 08/29/22 15:17 Freq: Status: Active Protocol: Document 10/25/22 07:27 AMB (Rec: 10/25/22 08:15 AMB [id number]) Physical Therapy Assessment Goals Three Impairment Pain Short Term Goal (STG) Cait will swim without her flippers without increasing her shoulder pain. STG Duration 5 weeks Assisted Goal (LTG) Cait will perform her yoga without needing to modify for her shoulder pain. (Met ) LTG Duration 10 weeks Two Impairment Strength Short Term Goal (STG) Cait will be independent with a HEP to improve her ROM and strengthening. STG Duration 5 weeks One Impairment ROM Short Term Goal (STG) Cait will improve her L shoulder active flexion to 160 degrees. (D/c goal 10/05/22; flexion ROM equal R vs L at 145 degrees) STG Duration 5 Assisted Goal (LTG) Cait will improve her L shoulder external rotation to at least 50 degrees. LTG Duration 10 Assessment Summary Assessment Pt tolerated manual and progression of exercise well, still recovering from overdoing it a few weeks ago. ROM is progressing, but continues to have pain with activities requiring more strength re swimming and yoga. Pt will continue to benefit from PT to progress her shoulder rehab slowly. Physical Therapy Plan Frequency and Duration Frequency of Treatment 1x/Week Duration of treatment (weeks) 10 Plan of Care Start Date 10/25/22 Plan of Care End Date 01/03/23 Therapeutic Interventions Therapeutic Interventions Home Exercise Program,Joint Mobilizations,Manual Therapy, Neuromuscular Re-education, Self-Care/Home Management, Therapeutic Activities, Therapeutic Exercises Modalities Cold Pack/Ice Massage,Electric Stimulation,Hot Packs Next Visit Focus/Plan Next Note Type Treatment Note Next Visit Plan Review if pt has questions with hep: current is doorway pec stretch, isometric ER, t band rows, t band ER, open book, supine flexion AROM, serratus punch.
--- NOTE | 2022-10-25 09:56 | PT.OPPOC ---
Physical, Occupational & Speech Therapy At [facility] Current Diagnoses Pain in left shoulder (10/25/22) Strain of muscle(s) and tendon(s) of the rotator cuff of left shoulder, initial encounter (10/25/22) Visit Care Team Role Provider Type Eugene Wagner MD Attending Provider Physician Family Provider Primary Care Provider Referring Provider Specialty: Family Practice Address: [address] [place] [address], [facility] Email: [email or web address] Plan Of Care PT-OP-T Assessment and Plan Start: 08/29/22 15:17 Freq: Status: Active Protocol: Document 10/25/22 07:27 AMB (Rec: 10/25/22 08:15 AMB [id number]) Physical Therapy Assessment Goals Three Impairment Pain Short Term Goal (STG) Cait will swim without her flippers without increasing her shoulder pain. STG Duration 5 weeks Bar Captain Goal (LTG) Cait will perform her yoga without needing to modify for her shoulder pain. (Met ) LTG Duration 10 weeks Two Impairment Strength Short Term Goal (STG) Cait will be independent with a HEP to improve her ROM and strengthening. STG Duration 5 weeks One Impairment ROM Short Term Goal (STG) Cait will improve her L shoulder active flexion to 160 degrees. (D/c goal 10/05/22; flexion ROM equal R vs L at 145 degrees) STG Duration 5 Group Home Goal (LTG) Cait will improve her L shoulder external rotation to at least 50 degrees. LTG Duration 10 Assessment Summary Assessment Pt tolerated manual and progression of exercise well, still recovering from overdoing it a few weeks ago. ROM is progressing, but continues to have pain with activities requiring more strength re swimming and yoga. Pt will continue to benefit from PT to progress her shoulder rehab slowly. Physical Therapy Plan Frequency and Duration Frequency of Treatment 1x/Week Duration of treatment (weeks) 10 Plan of Care Start Date 10/25/22 Plan of Care End Date 01/03/23 Therapeutic Interventions Therapeutic Interventions Home Exercise Program,Joint Mobilizations,Manual Therapy, Neuromuscular Re-education, Self-Care/Home Management, Therapeutic Activities, Therapeutic Exercises Modalities Cold Pack/Ice Massage,Electric Stimulation,Hot Packs Next Visit Focus/Plan Next Note Type Treatment Note Next Visit Plan Review if pt has questions with hep: current is doorway pec stretch, isometric ER, t band rows, t band ER, open book, supine flexion AROM, serratus punch. Plan of Care Dates Plan of Care Start Date 10/25/22 Plan of Care End Date 01/03/23 Electronically Signed by: Liliana Salgado, PT 10/25/22 0956 If you are in agreement with this Plan of Care, please return a signed and dated copy. I have reviewed this Plan of Care and certify that the skilled therapy services above are required to meet the patient?s needs. Physician Signature Date Printed Name and Credentials Clinical Instructor Signature Printed Name and Credentials
--- NOTE | 2022-11-09 17:23 | PT.OTN ---
Current Diagnoses Pain in left shoulder (11/09/22) Strain of muscle(s) and tendon(s) of the rotator cuff of left shoulder, initial encounter (11/09/22) Strain of muscle(s) and tendon(s) of the rotator cuff of left shoulder, sequela (11/09/22) Physical Therapy Treatment Note PT-OP-A Visit Information Start: 08/29/22 15:17 Freq: Status: Active Protocol: Document 11/09/22 13:34 [facility] (Rec: 11/09/22 17:23 [facility] [id number]) Out-Patient Physical Therapy Visit Information Visit Information Visit Type Treatment Note Visit Start Time 13:35 Visit Stop Time 14:20 Total Visit Minutes 45 Visit Number 9 Number of STRATEGIC ACCOUNT DIRECTOR Visits 0 PT-OP-B Current Condition Start: 08/29/22 15:17 Freq: Status: Active Protocol: Document 08/30/22 10:03 AMB (Rec: 08/30/22 10:53 AMB [id number]) Current Condition History of Current Condition Onset Date January 2022 Current Complaints L shoulder pain History of Current Condition Pain after covid shot, likes to swim. Back in May pain increased. Has to use flippers for swimming now. Pain with movement especially overhead. Biking, piano, yoga all increase the pain. Treatment Goals Patient/Caregiver Goals Be able to swim, do yoga without shoulder pain Personal Factors Other Personal Factors That May Effect Hx B QUIQUE 2012, osteopenia, Therapy/Recovery hypothyroid, neck pain PT-OP-C Subjective Start: 08/29/22 15:17 Freq: Status: Active Protocol: Document 11/09/22 13:34 [facility] (Rec: 11/09/22 17:23 [facility] [id number]) OP-PT Subjective Patient Comments Patient Comments Pt reports she has been slowly adding the exercises back and is doing okay iwth them except open book hurts her neck when she turns her neck. PT-OP-K Range of Motion Start: 08/29/22 15:17 Freq: Status: Active Protocol: Document 10/05/22 12:48 ES (Rec: 10/05/22 14:33 ES [id number]) Shoulder Goniometric Range of Motion Shoulder L Flexion 145 Abduction 155 Horizontal Adduction 20 External Rotation at 90 degrees 65 Abduction External Rotation at 0 degrees Abduction 30 Comments Pain at mid range shoulder abduction>flexion and with horiz adduction R Flexion 145 Abduction 155 Horizontal Adduction 35 PT-OP-L Special Tests Start: 08/29/22 15:17 Freq: Status: Active Protocol: Document 08/30/22 10:03 AMB (Rec: 08/30/22 10:53 AMB [id number]) Special Tests Shoulder Special Tests Lift-Off Rotator Cuff Test Results + Neer Impingement Test Results - [place] Impingement Test Results + PT-OP-M Strength Start: 08/29/22 15:17 Freq: Status: Active Protocol: Document 10/05/22 12:48 ES (Rec: 10/05/22 14:33 ES [id number]) Shoulder Strength Shoulder Manual Muscle Testing Left Flexion 4+ Good+ Abduction (C5) 4+ Good+ External Rotation 4 Good Internal Rotation 4 Good Comments Pain with resisted abduction, IR>ER PT-OP-Q Treatments Start: 08/29/22 15:17 Freq: Status: Active Protocol: Document 11/09/22 13:34 [facility] (Rec: 11/09/22 17:23 [facility] [id number]) Therapeutic Exercises Supine Exercises scapular punch Side left Resistance 1Lb Reps/Minutes 6 Comments cue slow descent Sidelying Exercises open book Side left Reps/Minutes 15 Comments cue gentle slow and limting neck ROM w/focus on thoracic Standing Exercises wall posture Standing Exercise Name roll up w/cues for ft away from wall and knees bent slow roll up Comments neutral neck ER Standing Exercise Name Shldr ER Side bilateral Resistance Green TB Reps/Minutes 4x8 Comments vc for execution without compensation Manual Therapy Treatment Soft Tissue Mobilization post Body Location L lats & rhomboid Mobilization Type Strumming,Sustained Pressure Intensity/Depth Moderate Body Position Sidelying scapula Body Location L UT/LS Mobilization Type Myofascial Release,Trigger Point Release Intensity/Depth Moderate Body Position Sidelying Joint Mobilizations SC Joint L Direction distraction Grade II AC Joint L ant clavicle Grade II GH Joint L post Grade II Self-Care/Home Management Treatment Education Other Education 7 min: edu re: improtnace of posture and importance of slowing down w/exercises. DIscussed appropriate scap position. Edu re: icing and drinking lots of water after treatments. PT-OP-T Assessment and Plan Start: 08/29/22 15:17 Freq: Status: Active Protocol: Document 11/09/22 13:34 [facility] (Rec: 11/09/22 17:23 [facility] [id number]) Physical Therapy Assessment Goals Three Impairment Pain Short Term Goal (STG) Cait will swim without her flippers without increasing her shoulder pain. STG Duration 5 weeks Optical Sales Associate Goal (LTG) Cait will perform her yoga without needing to modify for her shoulder pain. (Met ) LTG Duration 10 weeks Two Impairment Strength Short Term Goal (STG) Cait will be independent with a HEP to improve her ROM and strengthening. STG Duration 5 weeks One Impairment ROM Short Term Goal (STG) Cait will improve her L shoulder active flexion to 160 degrees. (D/c goal 10/05/22; flexion ROM equal R vs L at 145 degrees) STG Duration 5 Optical Sales Associate Goal (LTG) Cait will improve her L shoulder external rotation to at least 50 degrees. LTG Duration 10 Assessment Summary Assessment Pt had improved form w/ exercises after cueing and education. Pt did tolerate addition of wt w/serratus punches w/o inc pain. Improved ability for PT to get pt's scap set on ribcage in apprpirate positioning after manual Physical Therapy Plan Next Visit Focus/Plan Next Note Type Treatment Note Next Visit Plan recheck wall posture; work on thoracic mobility and ribcage mobility L
--- NOTE | 2022-11-23 09:40 | PT.OTN ---
Current Diagnoses Pain in left shoulder (11/23/22) Strain of muscle(s) and tendon(s) of the rotator cuff of left shoulder, initial encounter (11/23/22) Strain of muscle(s) and tendon(s) of the rotator cuff of left shoulder, sequela (11/23/22) Physical Therapy Treatment Note PT-OP-A Visit Information Start: 08/29/22 15:17 Freq: Status: Active Protocol: Document 11/23/22 08:16 [facility] (Rec: 11/23/22 09:39 [facility] [id number]) Out-Patient Physical Therapy Visit Information Visit Information Visit Type Treatment Note Visit Start Time 08:18 Visit Stop Time 09:01 Total Visit Minutes 43 Visit Number 10 Number of LIBRARY SALES CONSULTANT Visits 0 PT-OP-B Current Condition Start: 08/29/22 15:17 Freq: Status: Active Protocol: Document 08/30/22 10:03 AMB (Rec: 08/30/22 10:53 AMB [id number]) Current Condition History of Current Condition Onset Date January 2022 Current Complaints L shoulder pain History of Current Condition Pain after covid shot, likes to swim. Back in May pain increased. Has to use flippers for swimming now. Pain with movement especially overhead. Biking, piano, yoga all increase the pain. Treatment Goals Patient/Caregiver Goals Be able to swim, do yoga without shoulder pain Personal Factors Other Personal Factors That May Effect Hx B QUIQUE 2012, osteopenia, Therapy/Recovery hypothyroid, neck pain PT-OP-C Subjective Start: 08/29/22 15:17 Freq: Status: Active Protocol: Document 11/23/22 08:16 [facility] (Rec: 11/23/22 09:39 [facility] [id number]) OP-PT Subjective Patient Comments Patient Comments pt reports wake up at 3 am and felt okay and read and was on the computer a bit and later is noting pain this AM. Notes felt okay after last session. PT-OP-K Range of Motion Start: 08/29/22 15:17 Freq: Status: Active Protocol: Document 10/05/22 12:48 ES (Rec: 10/05/22 14:33 ES [id number]) Shoulder Goniometric Range of Motion Shoulder L Flexion 145 Abduction 155 Horizontal Adduction 20 External Rotation at 90 degrees 65 Abduction External Rotation at 0 degrees Abduction 30 Comments Pain at mid range shoulder abduction>flexion and with horiz adduction R Flexion 145 Abduction 155 Horizontal Adduction 35 PT-OP-L Special Tests Start: 08/29/22 15:17 Freq: Status: Active Protocol: Document 08/30/22 10:03 AMB (Rec: 08/30/22 10:53 AMB [id number]) Special Tests Shoulder Special Tests Lift-Off Rotator Cuff Test Results + Neer Impingement Test Results - [place] Impingement Test Results + PT-OP-M Strength Start: 08/29/22 15:17 Freq: Status: Active Protocol: Document 10/05/22 12:48 ES (Rec: 10/05/22 14:33 ES [id number]) Shoulder Strength Shoulder Manual Muscle Testing Left Flexion 4+ Good+ Abduction (C5) 4+ Good+ External Rotation 4 Good Internal Rotation 4 Good Comments Pain with resisted abduction, IR>ER PT-OP-Q Treatments Start: 08/29/22 15:17 Freq: Status: Active Protocol: Document 11/23/22 08:16 [facility] (Rec: 11/23/22 09:39 [facility] [id number]) Therapeutic Exercises Supine Exercises scapular punch Supine Exercise Name chest press to punch Side left Resistance 1Lb Reps/Minutes 2x10 Sitting Exercises ER Sitting Exercise Name 90/90 Side left Equipment Used 1 lb Reps/Minutes 10x no wt; 12 x w/wt rotation Sitting Exercise Name trunk Side bilateral Reps/Minutes 6 Standing Exercises wall posture Standing Exercise Name wall roll up w/scap set Side bilateral Reps/Minutes 3 min Comments neutral neck Manual Therapy Treatment Soft Tissue Mobilization shoulder Body Location L pec Mobilization Type Sustained Pressure Joint Mobilizations SC Joint L Direction inf FM AC Joint L ant clavicle Grade II GH Grade II Comments L post, distraction and gapping FM Self-Care/Home Management Treatment Education Other Education 8 min: edu re: con to gradual inc exercises; discussing things still irritating shoulder and what pt is avoiding. Discussed need for strength w/kayaking. PT-OP-T Assessment and Plan Start: 08/29/22 15:17 Freq: Status: Active Protocol: Document 11/23/22 08:16 [facility] (Rec: 11/23/22 09:39 [facility] [id number]) Physical Therapy Assessment Goals Three Impairment Pain Short Term Goal (STG) Cait will swim without her flippers without increasing her shoulder pain. STG Duration 5 weeks Six Pack Packer Goal (LTG) Cait will perform her yoga without needing to modify for her shoulder pain. (Met ) LTG Duration 10 weeks Two Impairment Strength Short Term Goal (STG) Cait will be independent with a HEP to improve her ROM and strengthening. STG Duration 5 weeks One Impairment ROM Short Term Goal (STG) Cait will improve her L shoulder active flexion to 160 degrees. (D/c goal 10/05/22; flexion ROM equal R vs L at 145 degrees) STG Duration 5 Halfway Goal (LTG) Cait will improve her L shoulder external rotation to at least 50 degrees. LTG Duration 10 Assessment Summary Assessment Pt did well with new exercises w/o inc pain. She had much improved PROM into all planes except IR after manual treatment. Physical Therapy Plan Frequency and Duration Frequency of Treatment 1x/Week Duration of treatment (weeks) 10 Plan of Care Start Date 10/25/22 Plan of Care End Date 01/03/23 Next Visit Focus/Plan Next Note Type Treatment Note Next Visit Plan cont to work GH mobility for overhead motion
--- NOTE | 2022-12-13 12:54 | PT.OTN ---
Current Diagnoses Pain in left shoulder (12/13/22) Strain of muscle(s) and tendon(s) of the rotator cuff of left shoulder, sequela (12/13/22) Physical Therapy Treatment Note PT-OP-A Visit Information Start: 08/29/22 15:17 Freq: Status: Active Protocol: Document 12/13/22 12:49 [facility] (Rec: 12/13/22 12:54 [facility] [id number]) Out-Patient Physical Therapy Visit Information Visit Information Visit Type Treatment Note Visit Start Time 08:20 Visit Stop Time 09:00 Total Visit Minutes 40 Visit Number 11 Number of MUSIC ENGINEER Visits 0 PT-OP-B Current Condition Start: 08/29/22 15:17 Freq: Status: Active Protocol: Document 08/30/22 10:03 AMB (Rec: 08/30/22 10:53 AMB [id number]) Current Condition History of Current Condition Onset Date January 2022 Current Complaints L shoulder pain History of Current Condition Pain after covid shot, likes to swim. Back in May pain increased. Has to use flippers for swimming now. Pain with movement especially overhead. Biking, piano, yoga all increase the pain. Treatment Goals Patient/Caregiver Goals Be able to swim, do yoga without shoulder pain Personal Factors Other Personal Factors That May Effect Hx B QUIQUE 2012, osteopenia, Therapy/Recovery hypothyroid, neck pain PT-OP-C Subjective Start: 08/29/22 15:17 Freq: Status: Active Protocol: Document 12/13/22 12:49 [facility] (Rec: 12/13/22 12:54 [facility] [id number]) OP-PT Subjective Patient Comments Patient Comments Pt reports tightness in B UT region after sleep PT-OP-K Range of Motion Start: 08/29/22 15:17 Freq: Status: Active Protocol: Document 10/05/22 12:48 ES (Rec: 10/05/22 14:33 ES [id number]) Shoulder Goniometric Range of Motion Shoulder L Flexion 145 Abduction 155 Horizontal Adduction 20 External Rotation at 90 degrees 65 Abduction External Rotation at 0 degrees Abduction 30 Comments Pain at mid range shoulder abduction>flexion and with horiz adduction R Flexion 145 Abduction 155 Horizontal Adduction 35 PT-OP-L Special Tests Start: 08/29/22 15:17 Freq: Status: Active Protocol: Document 08/30/22 10:03 AMB (Rec: 08/30/22 10:53 AMB [id number]) Special Tests Shoulder Special Tests Lift-Off Rotator Cuff Test Results + Neer Impingement Test Results - Lima Williamson Impingement Test Results + PT-OP-M Strength Start: 08/29/22 15:17 Freq: Status: Active Protocol: Document 10/05/22 12:48 ES (Rec: 10/05/22 14:33 ES [id number]) Shoulder Strength Shoulder Manual Muscle Testing Left Flexion 4+ Good+ Abduction (C5) 4+ Good+ External Rotation 4 Good Internal Rotation 4 Good Comments Pain with resisted abduction, IR>ER PT-OP-Q Treatments Start: 08/29/22 15:17 Freq: Status: Active Protocol: Document 12/13/22 12:49 [facility] (Rec: 12/13/22 12:54 [facility] [id number]) Therapeutic Exercises Sitting Exercises axial elongation Reps/Minutes 8 Therapeutic Activity Therapeutic Activity sleep Comments s/l and supine sleep position w/education re: pillow position and importance of molding pillow and need for support under neck and how to keep head in neutral. x9 min Manual Therapy Treatment Soft Tissue Mobilization shoulder Body Location L pec Mobilization Type Sustained Pressure Joint Mobilizations AC Joint L PA & scap post FM Grade II Body Position s/l GH Comments L post translation & glide, inf translation & glide & lat gapping & IR FM PT-OP-T Assessment and Plan Start: 08/29/22 15:17 Freq: Status: Active Protocol: Document 12/13/22 12:49 [facility] (Rec: 12/13/22 12:54 [facility] [id number]) Physical Therapy Assessment Goals Three Impairment Pain Short Term Goal (STG) Cait will swim without her flippers without increasing her shoulder pain. STG Duration 5 weeks Emergency Room Orderly Goal (LTG) Cait will perform her yoga without needing to modify for her shoulder pain. (Met ) LTG Duration 10 weeks Two Impairment Strength Short Term Goal (STG) Cait will be independent with a HEP to improve her ROM and strengthening. STG Duration 5 weeks One Impairment ROM Short Term Goal (STG) Cait will improve her L shoulder active flexion to 160 degrees. (D/c goal 10/05/22; flexion ROM equal R vs L at 145 degrees) STG Duration 5 Correction Goal (LTG) Cait will improve her L shoulder external rotation to at least 50 degrees. LTG Duration 10 Assessment Summary Assessment Pt had improved IR at 90 deg ROM after manual along w/ improved overhead motion (flex ) w/less discomfort. Significant time spent edu pt re: sleep position as she was noting tension in UT region and neck from sleep position. Pt verbalized understanding w/ support positions. Physical Therapy Plan Frequency and Duration Frequency of Treatment 1x/Week Duration of treatment (weeks) 10 Plan of Care Start Date 10/25/22 Plan of Care End Date 01/03/23 Next Visit Focus/Plan Next Note Type Progress Note Next Visit Plan try prone exercises; PN vs DC
--- NOTE | 2022-12-27 09:52 | PT.OTN ---
Current Diagnoses Pain in left shoulder (12/27/22) Strain of muscle(s) and tendon(s) of the rotator cuff of left shoulder, sequela (12/27/22) Physical Therapy Treatment Note PT-OP-A Visit Information Start: 08/29/22 15:17 Freq: Status: Active Protocol: Document 12/27/22 08:14 [facility] (Rec: 12/27/22 09:52 [facility] [id number]) Out-Patient Physical Therapy Visit Information Visit Information Visit Type Discharge Summary Visit Start Time 08:15 Visit Stop Time 08:57 Total Visit Minutes 42 Visit Number 12 Number of PLANT MANAGER Visits 0 PT-OP-B Current Condition Start: 08/29/22 15:17 Freq: Status: Active Protocol: Document 08/30/22 10:03 AMB (Rec: 08/30/22 10:53 AMB [id number]) Current Condition History of Current Condition Onset Date January 2022 Current Complaints L shoulder pain History of Current Condition Pain after covid shot, likes to swim. Back in May pain increased. Has to use flippers for swimming now. Pain with movement especially overhead. Biking, piano, yoga all increase the pain. Treatment Goals Patient/Caregiver Goals Be able to swim, do yoga without shoulder pain Personal Factors Other Personal Factors That May Effect Hx B QUIQUE 2012, osteopenia, Therapy/Recovery hypothyroid, neck pain PT-OP-C Subjective Start: 08/29/22 15:17 Freq: Status: Active Protocol: Document 12/27/22 08:14 [facility] (Rec: 12/27/22 09:52 [facility] [id number]) OP-PT Subjective Patient Comments Patient Comments Pt reports she swims most of the session w/o her flippers now PT-OP-K Range of Motion Start: 08/29/22 15:17 Freq: Status: Active Protocol: Document 12/27/22 08:14 [facility] (Rec: 12/27/22 09:52 [facility] [id number]) Shoulder Goniometric Range of Motion Shoulder L Flexion 150 Extension 55 Abduction 155 Horizontal Adduction 20 External Rotation at 90 degrees 65 Abduction External Rotation at 0 degrees Abduction 62 Internal Rotation Behind Back (text) T9 Comments pain w/ext R Flexion 146 Extension 62 Abduction 157 External Rotation at 0 degrees Abduction 56 Internal Rotation Behind Back (text) T9 PT-OP-L Special Tests Start: 08/29/22 15:17 Freq: Status: Active Protocol: Document 08/30/22 10:03 AMB (Rec: 08/30/22 10:53 AMB [id number]) Special Tests Shoulder Special Tests Lift-Off Rotator Cuff Test Results + Neer Impingement Test Results - Lima Clay Impingement Test Results + PT-OP-M Strength Start: 08/29/22 15:17 Freq: Status: Active Protocol: Document 12/27/22 08:14 [facility] (Rec: 12/27/22 09:52 [facility] [id number]) Shoulder Strength Shoulder Manual Muscle Testing Left Flexion 4+ Good+ Extension 5 Normal Abduction (C5) 4+ Good+ External Rotation 4+ Good+ Internal Rotation 5 Normal Comments Pain with resisted abduction PT-OP-Q Treatments Start: 08/29/22 15:17 Freq: Status: Active Protocol: Document 12/27/22 08:14 [facility] (Rec: 12/27/22 09:52 [facility] [id number]) Manual Therapy Treatment Soft Tissue Mobilization shoulder Body Location L pec major and minor & UT Mobilization Type Sustained Pressure Comments w/passive ext Joint Mobilizations rib Comments 1st rib caudal FM w/ext AC Joint clavicle pst FM GH Joint inf FM w/ext Self-Care/Home Management Treatment Education Other Education 13min: verbal review of exercises. Discussed ways to use trees or picnic tables to modify some exercsies to work for her when camping. Discussed progress and pt concerns and edu to have pt not try to resume abd exercse as she is doing that ROM w/ swimming so not important. Pt asked about PT rec re: getting booster in same arm and PT deferred to MD or pharmacist PT-OP-T Assessment and Plan Start: 08/29/22 15:17 Freq: Status: Active Protocol: Document 12/27/22 08:14 [facility] (Rec: 12/27/22 09:52 [facility] [id number]) Physical Therapy Assessment Goals Three Impairment Pain Short Term Goal (STG) Cait will swim without her flippers without increasing her shoulder pain. STG Duration achieved Can Runner Goal (LTG) Cait will perform her yoga without needing to modify for her shoulder pain. (Met ) LTG Duration achieved Two Impairment Strength Short Term Goal (STG) Cait will be independent with a HEP to improve her ROM and strengthening. STG Duration achieved One Impairment ROM Short Term Goal (STG) Cait will improve her L shoulder active flexion to 160 degrees. (D/c goal 10/05/22; flexion ROM equal R vs L at 145 degrees) STG Duration achievd to equal Can Runner Goal (LTG) Cait will improve her L shoulder external rotation to at least 50 degrees. LTG Duration achieved Assessment Summary Assessment Pt has made execellent progress w/PT and has good ROM and strenth and is indep w/ HEP at this time to keep progressing strength and ROM on her own.S he has some discomfort at end ranges but overall good range.S he is returning back to swimming without issue and noted dec need to modify ADLs. Pt had imrpoved ext w/manual. DC today Physical Therapy Plan Discharge Physical Therapy Discharge Reasons Goals Met
== END 2022-12-27 14:36 | disposition home or self-care (01) ==
LOC: PHYS 08:15
PROVIDERS: Family Provider Family Medicine; PCP Family Medicine; Referring Provider Family Medicine; Visit Provider Family Medicine
DX: M25.512 Pain in left shoulder (principal); S46.012S Strain of muscle(s) and tendon(s) of the rotator cuff of left shoulder, sequela
CPT/HCPCS: 95851; 97110; 97140; 97161; 97530; 97535

== ENCOUNTER → 2023-05-22 16:22 | Outpatient (CLI) | payer OTHER, MEDICARE, SELFPAY ==
[2023-05-22 17:36] LABS: Add Manual Diff / Slide Review NO; Basophils Absolute Auto 0 /uL (0-100); Basophils Percent Auto 0.8 % (0-2); Eosinophils Absolute Auto 100 /uL (0-450); Eosinophils Percent Auto 1.9 % (2-4); Hematocrit 39.5 % (36-46); Hemoglobin 13.2 g/dL (12.0-16.0); Lymphocytes Absolute Auto 2100 /uL (1100-4500); Lymphocytes Percent Auto 36.1 % (25-40); Mean Corpuscular HGB Conc 33.5 % (30-36); Mean Corpuscular Hemoglobin 30.7 PG (26-34); Mean Corpuscular Volume 91.6 fL (80-100); Monocytes Absolute Auto 500 /uL (0-900); Monocytes Percent Auto 9.2 % (3-14); Neutrophils Absolute Auto 3100 /uL (1500-7000); Platelet Count 212 X10^3/uL (150-400); Red Blood Cell Count 4.31 X10^6/uL (4.0-5.2); Red Cell Distribution Width 12.6 % (11.6-14.8); White Blood Cell Count 5.9 X10^3/uL (4.5-11.0)
[2023-05-22 18:03] LABS: Alanine Aminotransferase 19 IU/L (<35); Albumin Globulin Ratio 1.3 (1.0-2.8); Alkaline Phosphatase 67 U/L (38-126); Aspartate Aminotransferase 29 IU/L (14-36); BUN Creatinine Ratio 20.3 (6-22); Bilirubin Total 0.4 mg/dL (0.2-1.3); Blood Urea Nitrogen 13 mg/dL (7-17); Carbon Dioxide 28 mmol/L (22-32); Chloride 107 mmol/L (98-107); Cholesterol 168 mg/dL (140-199); Estimated Glomerular Filt Rate > 60 mL/min (>60); Globulin 3.2 g/dL (1.7-4.1); Glucose 87 mg/dL (80-110); HDL Cholesterol 67 mg/dL (40-60); HEMOLYSIS < 15 (0-50); LDL Cholesterol Calculated 80 mg/dL (<100); Sodium 141 mmol/L (137-145); Total Protein 7.2 g/dL (6.3-8.2); Triglycerides 105 mg/dL (35-150)
[2023-05-22 18:33] LABS: TSH w/ Reflex to FT4 0.88 uIU/mL (0.47-4.68)
== END ==
LOC: LAB 16:23
PROVIDERS: Family Provider Family Medicine; PCP Family Medicine; Referring Provider Family Medicine; Visit Provider Family Medicine
DX: E78.5 Hyperlipidemia, unspecified (principal); E03.9 Hypothyroidism, unspecified
CPT/HCPCS: 36415; 80053; 80061; 84443; 85025

== ENCOUNTER → 2024-05-13 11:15 | Outpatient (CLI) | payer OTHER, SELFPAY | PROVIDERS: Family Provider Family Medicine; PCP Family Medicine; Visit Provider Physician Assistant | DX: R30.0 Dysuria (principal) | CPT/HCPCS: 87086; 87210 ==

== ENCOUNTER → 2024-07-08 16:40 | Outpatient (CLI) | payer OTHER, SELFPAY ==
[2024-07-08 17:49] LABS: Add Manual Diff / Slide Review NO; Basophils Absolute Auto 100 /uL (0-100); Eosinophils Absolute Auto 100 /uL (0-450); Eosinophils Percent Auto 2.2 % (2-4); Hematocrit 41.1 % (36-46); Hemoglobin 13.8 g/dL (12.0-16.0); Lymphocytes Absolute Auto 1900 /uL (1100-4500); Lymphocytes Percent Auto 33.7 % (25-40); Mean Corpuscular HGB Conc 33.6 % (30-36); Mean Corpuscular Hemoglobin 30.9 PG (26-34); Monocytes Absolute Auto 400 /uL (0-900); Monocytes Percent Auto 7.8 % (3-14); Neutrophils Absolute Auto 3100 /uL (1500-7000); Neutrophils Percent Auto 55.3 % (50-75); Platelet Count 208 X10^3/uL (150-400); Red Blood Cell Count 4.47 X10^6/uL (4.0-5.2); Red Cell Distribution Width 12.9 % (11.6-14.8); White Blood Cell Count 5.5 X10^3/uL (4.5-11.0)
[2024-07-08 18:19] LABS: Alanine Aminotransferase 40 IU/L (<35); Albumin 4.2 g/dL (3.5-5.0); Albumin Globulin Ratio 1.4 (1.0-2.8); Alkaline Phosphatase 74 U/L (38-126); Aspartate Aminotransferase 44 IU/L (14-36); BUN Creatinine Ratio 28.8 (6-22); Bilirubin Total 0.3 mg/dL (0.2-1.3); Blood Urea Nitrogen 21 mg/dL (7-17); Calcium 9.2 mg/dL (8.4-10.2); Carbon Dioxide 28 mmol/L (22-32); Chloride 105 mmol/L (98-107); Cholesterol 197 mg/dL (140-199); Estimated Glomerular Filt Rate > 60 mL/min (>60); Glucose 90 mg/dL (80-110); HDL Cholesterol 73 mg/dL (40-60); HEMOLYSIS < 15 (0-50); LDL Cholesterol Calculated 106 mg/dL (<100); Potassium 4.3 mmol/L (3.4-5.1); Sodium 140 mmol/L (137-145); Total Protein 7.2 g/dL (6.3-8.2); Triglycerides 92 mg/dL (35-150)
[2024-07-08 18:47] LABS: TSH w/ Reflex to FT4 < 0.02 uIU/mL (0.47-4.68)
[2024-07-08 19:23] LABS: Free T4, Direct Thyroxine 1.45 ng/dL (0.78-2.19)
== END ==
PROVIDERS: Family Provider Family Medicine; PCP Family Medicine; Referring Provider Family Medicine; Visit Provider Family Medicine
DX: Z00.00 Encounter for general adult medical examination without abnormal findings (principal); E78.5 Hyperlipidemia, unspecified; E03.9 Hypothyroidism, unspecified
CPT/HCPCS: 36415; 80053; 80061; 84439; 84443; 85025

== ENCOUNTER → 2024-07-28 13:17 | Outpatient (CLI) | payer OTHER, SELFPAY ==
[2024-07-30 21:13] LABS: Alanine Aminotransferase 29 IU/L (<35); Albumin 4.1 g/dL (3.5-5.0); Albumin Globulin Ratio 1.5 (1.0-2.8); Alkaline Phosphatase 72 U/L (38-126); Aspartate Aminotransferase 32 IU/L (14-36); Bilirubin Total 0.3 mg/dL (0.2-1.3); Bilirubin Unconjugated 0.2 mg/dL (0.0-1.1); Globulin 2.7 g/dL (1.7-4.1); HEMOLYSIS < 15 (0-50); Total Protein 6.8 g/dL (6.3-8.2)
== END ==
PROVIDERS: Family Provider Family Medicine; PCP Family Medicine; Referring Provider Family Medicine; Visit Provider Family Medicine
DX: E03.9 Hypothyroidism, unspecified (principal); R74.8 Abnormal levels of other serum enzymes; R79.9 Abnormal finding of blood chemistry, unspecified
CPT/HCPCS: 36415; 80076

== ENCOUNTER → 2024-07-30 15:30 | Outpatient (CLI) | payer OTHER, SELFPAY ==
[2024-07-30 17:55] LABS: TSH w/ Reflex to FT4 0.03 uIU/mL (0.47-4.68)
[2024-07-30 18:23] LABS: Free T4, Direct Thyroxine 1.14 ng/dL (0.78-2.19)
== END ==
PROVIDERS: Family Provider Family Medicine; PCP Family Medicine; Referring Provider Family Medicine; Visit Provider Family Medicine
DX: E03.9 Hypothyroidism, unspecified (principal)
CPT/HCPCS: 36415; 84439; 84443

== ENCOUNTER → 2024-10-02 11:45 | Outpatient (CLI) | payer OTHER, SELFPAY ==
[2024-10-02 13:39] LABS: TSH w/ Reflex to FT4 4.73 uIU/mL (0.47-4.68)
[2024-10-02 17:35] LABS: Free T4, Direct Thyroxine 1.06 ng/dL (0.78-2.19)
== END ==
PROVIDERS: Family Provider Family Medicine; PCP Family Medicine; Referring Provider Family Medicine; Visit Provider Family Medicine
DX: E03.9 Hypothyroidism, unspecified (principal)
CPT/HCPCS: 36415; 84439; 84443